=== PATIENT | male | born 1995 | race Caucasian/White ===

== ENCOUNTER 2020-03-05 21:55 | Emergency (ER) | payer OTHER ==
[2020-03-05 22:59] LABS: Absolute Lymphocytes (CBC) 1.5 K/uL (0.7-4.9); Basophils % 0.2 % (0-1.3); Hematocrit 48.3 % (39.6-49.0); Lymphocytes % 17.4 % (15.3-44.8); MPV 7.9 fL (7.6-11.3); RBC Red Blood Cell Count 5.28 M/uL (4.33-5.43)
[2020-03-05 23:03] LABS: Protime INR 1.1
[2020-03-05 23:36] LABS: ALT/SGPT 20 U/L (12-78); AST/SGOT 11 U/L (15-37); Albumin 4.4 g/dL (3.4-5.0); Alkaline Phosphatase 89 U/L (45-117); BUN Blood Urea Nitrogen 21 mg/dL (7-18); Bicarbonate 27 mmol/L (21-32); Bilirubin Direct 0.1 mg/dL (0-0.2); Bilirubin Total 0.5 mg/dL (0.2-1.0); Glucose Level 94 mg/dL (74-106); Potassium 3.7 mmol/L (3.5-5.1); Protein, Total 7.9 g/dL (6.4-8.2); Sodium Level 142 mmol/L (136-145)
[2020-03-05 23:41] LABS: Urine Blood TRACE (NEG); Urine Glucose NEGATIVE (NEG); Urine Protein NEGATIVE (NEG); Urine Specific Gravity >1.030 (1.005-1.030); Urine pH 6.5 (5.0-7.0)
[2020-03-06 00:02] LABS: Barbiturates NEGATIVE (NEGATIVE); Benzodiazepines NEGATIVE (NEGATIVE); Cocaine NEGATIVE (NEGATIVE); METHAMPHETAM NEGATIVE (NEGATIVE); Methadone NEGATIVE (NEGATIVE); Opiates NEGATIVE (NEGATIVE); Phencyclidine NEGATIVE (NEGATIVE); THC Cannibis NEGATIVE (NEGATIVE)
--- NOTE | 2020-03-06 00:43 | EDPHYS ---
Physician Documentation [facility] Name: Richard South Age: 24 yrs Sex: Male : 1995 Arrival Date: 03/05/2020 Time: 21:56 Bed 15 Private MD: ED Physician Gianni Rhodes HPI: 03/05 22:02 This 24 yrs old Male presents to ER via EMS with complaints of Suicidal jmm Ideation. 22:02 The patient presents to the emergency department with suicide ideation, and the patient jmm has a plan, to crash a car. Onset: The symptoms/episode began/occurred this morning. Associated signs and symptoms: Pertinent negatives: chest pain, chills, delusions, depression, fever, hallucinations, headache, homicidal ideation, nausea, night sweats, palpitations, paranoia, shortness of breath, substance abuse, tremor, vomiting. This is a 24 year old male with a history of add/adhd that presents to the ED with suicidal ideation after an argument with family. Patient currently denies SI/HI. Symptoms occurred this morning with a plan to crash his vehicle. . Historical: - Allergies: 22:13 No Known Allergies; jd3 - Home Meds: 22:13 add/adhd med [Active]; jd3 - PMHx: 22:13 ADD/ADHD; jd3 - PSHx: 22:13 None; jd3 - Immunization history:: Adult Immunizations up to date. - Social history:: Smoking status: Patient denies any tobacco usage or history of. ROS: 22:02 Constitutional: Negative for fever, chills, and weight loss, Cardiovascular: Negative jmm for chest pain, palpitations, and edema, Respiratory: Negative for shortness of breath, cough, wheezing, and pleuritic chest pain. 22:02 Psych: Positive for suicidal ideation. 22:02 All other systems are negative. Exam: 22:02 Constitutional: This is a well developed, well nourished patient who is awake, alert, jmm and in no acute distress. Head/Face: atraumatic. Eyes: EOMI, no conjunctival erythema appreciated ENT: Moist Mucus Membranes Neck: Trachea midline, Supple Chest/axilla: Normal chest wall appearance and motion. Cardiovascular: Regular rate and rhythm. No edema appreciated Respiratory: Normal respirations, no respiratory distress appreciated Abdomen/GI: Non distended, soft Back: Normal ROM Skin: General appearance color normal MS/ Extremity: Moves all extremities, no obvious deformities appreciated, no edema noted to the lower extremities Neuro: Awake and alert, normal gait Psych: Behavior is normal, Mood is normal, Patient is cooperative and pleasant 22:02 Psych: Behavior/mood is pleasant, cooperative. Vital Signs: 22:14 BP 117 / 71; Pulse 88; Resp 16 S; Temp 98.8(O); Pulse Ox 97% on R/A; Weight 99.79 kg jd3 (R); Height 6 ft. 1 in. (185.42 cm) (R); Pain 0/10; 22:14 Body Mass Index 29.03 (99.79 kg, 185.42 cm) jd3 MDM: 22:21 Patient medically screened. [facility] 03/06 00:40 Data reviewed: vital signs, nurses notes. Counseling: I had a detailed discussion with [facility] the patient and/or guardian regarding: the historical points, exam findings, and any diagnostic results supporting the discharge/admit diagnosis, lab results, the need for outpatient follow up. ED course: I discussed with the patient further for the need for psychiatric evaluation. Patient has an appt scheduled for next Tuesday. patient currently states feeling better and has no intent to harm himself. Patient appears to be of sound mind and judgement. Patient was made aware of other psychiatric services and otherwise given strict return precautions. patient understood and agrees with the plan of care. . 03/05 22:02 Order name: Acetaminophen; Complete Time: 23:43 [facility] 03/05 22:02 Order name: Basic Metabolic Panel; Complete Time: 23:43 [facility] 03/05 22:02 Order name: CBC with Diff; Complete Time: 23:23 [facility] 03/05 22:02 Order name: ETOH Level; Complete Time: 23:43 [facility] 03/05 22:02 Order name: Hepatic Function; Complete Time: 23:43 [facility] 03/05 22:02 Order name: PT-INR; Complete Time: 23:43 [facility] 03/05 22:02 Order name: Ptt, Activated; Complete Time: 23:43 [facility] 03/05 22:02 Order name: Salicylate; Complete Time: 23:43 [facility] 03/05 22:02 Order name: Urine Drug Screen; Complete Time: 00:06 [facility] 03/05 22:02 Order name: EKG; Complete Time: 22:03 [facility] 03/05 22:02 Order name: EKG - Nurse/Tech; Complete Time: 22:38 [facility] 03/05 22:02 Order name: IV Saline Lock; Complete Time: 22:20 [facility] 03/05 22:02 Order name: Labs collected and sent; Complete Time: 22:23 [facility] 03/05 23:29 Order name: Urine Dipstick--Ancillary (enter results); Complete Time: 23:43 [facility] 03/05 22:02 Order name: Urine Dipstick-Ancillary (obtain specimen); Complete Time: 23:34 [facility] Administered Medications: No medications were administered Disposition: 03:12 Co-signature as Attending Physician, Gianni Rhodes MD. rn Disposition: 03/06/20 00:42 Discharged to Home. Impression: Suicidal ideations. - Condition is Stable. - Discharge Instructions: Suicidal Feelings: How to Help Yourself. - Medication Reconciliation Form, Thank You Letter, Antibiotic Education, Prescription Opioid Use form. - Follow up: Private Physician; When: 2 - 3 days; Reason: Recheck today's complaints, Continuance of care, Re-evaluation by your physician. Signatures: Dispatcher [employer] EDMS Paul Benton PA PA [facility] Gianni Rhodes MD MD rn Davies, Jonathon, RN RN jd3 Corrections: (The following items were deleted from the chart) 01:04 00:42 03/06/2020 00:42 Discharged to Home. Impression: Suicidal ideations. Condition is jd3 Stable. Forms are Medication Reconciliation Form, Thank You Letter, Antibiotic Education, Prescription Opioid Use. Follow up: Private Physician; When: 2 - 3 days; Reason: Recheck today's complaints, Continuance of care, Re-evaluation by your physician. [facility]
--- NOTE | 2020-03-06 00:43 | ER ---
Nurse's Notes [facility] Name: Richard South Age: 24 yrs Sex: Male : 1995 Arrival Date: 03/05/2020 Time: 21:56 Bed 15 Private MD: Diagnosis: Suicidal ideations Presentation: 03/05 22:10 Chief complaint: Patient states: "I am having suicidal thoughts. In the moment my [facility] family was having a discussion and I felt like I was not heard. there is big family change coming and I guess I just got overwhelmed." EMS states: "The pt reported having suicidal thoughts today starting this morning. he reported that he has had these thought since he was a teenager, but today they just got worse.". Coronavirus screen: Proceed with normal triage. Ebola Screen: Patient negative for fever greater than or equal to 101.5 degrees Fahrenheit, and additional compatible Ebola Virus Disease symptoms. Initial Sepsis Screen: Does the patient meet any 2 criteria? No. Patient's initial sepsis screen is negative. Does the patient have a suspected source of infection? No. Patient's initial sepsis screen is negative. Risk Assessment: Do you want to hurt yourself or someone else? Patient reports desire/thoughts of hurting themselves or someone else. Provider notified. Onset of symptoms was March 05, 2020. 22:10 Method Of Arrival: EMS: [facility] jd3 22:10 Acuity: NUNU 2 jd3 Historical: - Allergies: 22:13 No Known Allergies; jd3 - Home Meds: 22:13 add/adhd med [Active]; jd3 - PMHx: 22:13 ADD/ADHD; jd3 - PSHx: 22:13 None; jd3 - Immunization history:: Adult Immunizations up to date. - Social history:: Smoking status: Patient denies any tobacco usage or history of. Screenin:19 Abuse screen: Denies threats or abuse. Nutritional screening: No deficits noted. jd3 Tuberculosis screening: No symptoms or risk factors identified. Fall Risk Ambulatory Aid- None/Bed Rest/Nurse Assist (0 pts). Gait- Normal/Bed Rest/Wheelchair (0 pts) Mental Status- Oriented to own ability (0 pts). Total Padilla Fall Scale indicates No Risk (0-24 pts). Assessment: 22:17 General: Appears in no apparent distress. uncomfortable, Behavior is calm, cooperative, jd3 appropriate for age. Pain: Denies pain. Neuro: Level of Consciousness is awake, alert, obeys commands, Oriented to person, place, time, situation. Cardiovascular: Denies chest pain, Capillary refill < 3 seconds Patient's skin is warm and dry. Respiratory: Airway is patent Respiratory effort is even, unlabored, Respiratory pattern is regular, symmetrical, Denies cough, shortness of breath. GI: No signs and/or symptoms were reported involving the gastrointestinal system. : No signs and/or symptoms were reported regarding the genitourinary system. EENT: No signs and/or symptoms were reported regarding the EENT system. Derm: Skin is intact, Skin is dry, Skin is normal, Skin temperature is warm. Musculoskeletal: Circulation, motion, and sensation intact. Range of motion: intact in all extremities. 23:00 Reassessment: Patient appears in no apparent distress at this time. Patient and/or jd3 family updated on plan of care and expected duration. Pain level reassessed. Patient is alert, oriented x 3, equal unlabored respirations, skin warm/dry/pink. Paul TAYLOR at bedside discussing plan of care with pt. 03/06 00:00 Reassessment: Patient appears in no apparent distress at this time. Patient and/or jd3 family updated on plan of care and expected duration. Pain level reassessed. Patient is alert, oriented x 3, equal unlabored respirations, skin warm/dry/pink. Patient denies pain at this time. 00:15 Reassessment: Yonatan speaking with [facility] physical geographer at this time to assist with POC.sg 00:31 Reassessment: Susana with [facility] reports that due to the insurance status of patient, he does not qualify for their services. The dispo decision can be made by the ERP or the ERP can reach out to "[facility]". Grisel TAYLOR notified. 00:40 Reassessment: Grisel TAYLOR speaking with patient about POC, Dispo, pt reports has a sg scheduled appointment with , a No Self Harm Contract has been signed by the patient, awaiting Dispo to home. 00:59 Reassessment: Patient and/or family updated on plan of care and expected duration. Pain jd3 level reassessed. Patient is alert, oriented x 3, equal unlabored respirations, skin warm/dry/pink. pt signed a "No- self harm contract" with nurse. pt reported no suicidal thoughts at this time. Psych: 03/05 22:16 Subjective: Patient's mood is sad, Delusions are denied, Hallucinations are denied jd3 Having thoughts of suicide. Denies suicidal plan. Objective: Patient is cooperative, Speech is normal, Affect is appropriate. Interventions: Removed personal items and placed in bag. Patient placed in hospital gown. Searched person for dangerous items. Urine collected and sent for urine drug test. Belonging list filled out. Suicide Risk Assessment: Sad Person Scale: Sex of patient: Male: Score 1 point. Age of patient: Score 1 point if patient 15-34. Depression: Score 1 point if signs of depression are present. Previous Attempt: Score 1 point if patient has previously attempted suicide. Substance Abuse: Score 0 point if patient does not abuse alcohol or drugs. Rational Thinking: Score 0 point if patient has rational thinking. Social Support: Score 0 if social support is present/available. Organized Plan: Score 0 if patient did not have an organized plan in place. Relationship: Score 1 point if patient is , , , or for a single male Chronic Sickness: Score 0 point if patient does not have a chronic illness, debilitating, or severe disorder. TOTAL POINTS: If total points are 5-6, proposed clinical action is to strongly consider hospitalization, depending upon confidence in the follow-up arrangement. Implement suicide precautions. Safety Checks: Personal items have been removed. Door is open. No visitors are present at this time. sitter at bedside. Pt denies substance abuse. 03/06 01:00 Commitment: pt is discharged. jd3 Vital Signs: 03/05 22:14 BP 117 / 71; Pulse 88; Resp 16 S; Temp 98.8(O); Pulse Ox 97% on R/A; Weight 99.79 kg jd3 (R); Height 6 ft. 1 in. (185.42 cm) (R); Pain 0/10; 22:14 Body Mass Index 29.03 (99.79 kg, 185.42 cm) jd3 ED Course: 21:56 Patient arrived in ED. cf2 21:58 Paul Benton PA is PHCP. jmm 21:58 Gianni Rhodes MD is Attending Physician. [facility] 22:09 Mariano Blackman, RN is Primary Nurse. jd3 22:12 Triage completed. jd3 22:15 Inserted saline lock: 20 gauge in right antecubital area, using aseptic technique. jd3 Blood collected. placed by Muna VALENTIN. 22:16 Arm band placed on. jd3 22:19 Patient has correct armband on for positive identification. Placed in gown. Bed in low jd3 position. Call light in reach. Side rails up X 1. Valuables inventory done. Locked in safe. See valuables checklist. Warm blanket given. 23:15 PO fluids given. Verbal reassurance given. jd3 03/06 00:13 called [facility] spoke to Yanni to have a screener evaluate pt. mw2 01:00 No provider procedures requiring assistance completed. IV discontinued, intact, jd3 bleeding controlled, No redness/swelling at site. Pressure dressing applied. Administered Medications: No medications were administered Outcome: 00:42 Discharge ordered by MD. [facility] 01:01 Discharged to home ambulatory, with family. jd3 01:01 Condition: stable 01:01 Discharge instructions given to patient, Instructed on discharge instructions, follow up and referral plans. Demonstrated understanding of instructions, follow-up care. 01:04 Patient left the ED. [facility] Signatures: Arya Hare RN Paul Vallejo PA PA [facility] Mariano Blackman RN RN jd3 [place], MyKena mw2 Cirilo Rea cf2 Corrections: (The following items were deleted from the chart) 06 22:16 22:14 BP 117 / 71; Pulse 88bpm; Resp 16bpm; Spontaneous; Pulse Ox 97% RA; Temp 78.8F jd3 Oral; 99.79 kg Reported; Height 6 ft. 1 in. Reported; BMI: 29.0; Pain 0/10; jd3
[2020-03-06 01:11] VITALS: BP 117/71; TEMP 98.8; O2SAT 97
--- NOTE | 2020-03-06 07:16 | EKG ---
Test Date: 2020-03-05 Test Time: 22:36:29 Welding Lead Burner: DANNY MEASUREMENT RESULTS: Intervals: Rate: 89 WV: 146 QRSD: 90 QT: 346 QTc: 420 [place]: P: 71 WV: 146 QRS: 57 T: 50 INTERPRETIVE STATEMENTS: Normal sinus rhythm Normal ECG No previous ECG available for comparison Electronically Signed On 03-06-20 07:15:08 CDT by Harrison Addison
== END 2020-03-06 01:04 | disposition home or self-care (01) ==
LOC: ER 21:55
DX: R45.851 Suicidal ideations (principal); F90.9 Attention-deficit hyperactivity disorder, unspecified type
CPT/HCPCS: 36415; 80048; 80076; 80307; 80320; 80329; 81003; 85025; 85610; 85730; 93005; 99284